=== PATIENT | female | born 1990 | race Caucasian/White ===

== ENCOUNTER 2023-05-19 10:39 | Outpatient (RCR) | payer BC, SELFPAY | END 2023-06-14 12:13 | disposition home or self-care (01) | LOC: RPT 10:39 | PROVIDERS: ATTENDING PHYSICIAN Internal Medicine | DX: R42 Dizziness and giddiness (principal); Z73.6 Limitation of activities due to disability | CPT/HCPCS: 97110; 97140 ==

== ENCOUNTER 2023-07-07 09:51 | Outpatient (RCR) | payer BC, SELFPAY | END 2023-07-07 23:59 | disposition home or self-care (01) | LOC: RPT 09:51 | PROVIDERS: ATTENDING PHYSICIAN Internal Medicine | DX: G90.A Postural orthostatic tachycardia syndrome [POTS] (principal); R42 Dizziness and giddiness | CPT/HCPCS: 97035; 97110; 97140 ==

== ENCOUNTER 2023-07-14 09:18 | Emergency (ER) | payer OTHER, BC, SELFPAY ==
[2023-07-14 09:20] VITALS: BP 124/81
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
[2023-07-14] MEDS: NSS 1000 IV (10:33)
[2023-07-14] MEDS: TORADOL 30 MG IV (10:33)
[2023-07-14 11:50] VITALS: BP 117/70
== END 2023-07-14 12:20 | disposition home or self-care (01) ==
LOC: EMR 09:18
PROVIDERS: EMERGENCY PHYSICIAN Emergency Medicine; FAMILY PHYSICIAN Internal Medicine
DX: S16.1XXA Strain of muscle, fascia and tendon at neck level, initial encounter (principal); M25.512 Pain in left shoulder; R51.9 Headache, unspecified; V44.5XXA Car driver injured in collision with heavy transport vehicle or bus in traffic accident, initial encounter; Y92.410 Unspecified street and highway as the place of occurrence of the external cause; G90.A Postural orthostatic tachycardia syndrome [POTS]; Q79.60 Ehlers-Danlos syndrome, unspecified; G62.9 Polyneuropathy, unspecified; F32.A Depression, unspecified; D64.9 Anemia, unspecified; E05.90 Thyrotoxicosis, unspecified without thyrotoxic crisis or storm; M79.671 Pain in right foot; M79.672 Pain in left foot; G89.29 Other chronic pain; Z88.8 Allergy status to other drugs, medicaments and biological substances; Z79.82 Long term (current) use of aspirin
CPT/HCPCS: 99284; 96374; 96361; 70450; 72125; 73030

== ENCOUNTER → 2023-07-28 14:16 | Outpatient (REF) | payer OTHER, BC, SELFPAY | LOC: RAD 14:16 | PROVIDERS: ATTENDING PHYSICIAN Family Medicine | DX: R68.84 Jaw pain (principal); M79.644 Pain in right finger(s) | CPT/HCPCS: 70110; 73130 ==

== ENCOUNTER 2023-08-11 08:52 | Outpatient (RCR) | payer OTHER, BC, SELFPAY | END 2023-08-11 23:59 | disposition home or self-care (01) | LOC: RPT 08:52 | PROVIDERS: ATTENDING PHYSICIAN Family Medicine | DX: S13.9XXD Sprain of joints and ligaments of unspecified parts of neck, subsequent encounter (principal); S06.0X0D Concussion without loss of consciousness, subsequent encounter; M25.512 Pain in left shoulder; R42 Dizziness and giddiness; Z73.6 Limitation of activities due to disability; M62.81 Muscle weakness (generalized); V44.9XXD Unspecified car occupant injured in collision with heavy transport vehicle or bus in traffic accident, subsequent encounter | CPT/HCPCS: 97010; 97110; 97112; 97140; 97163 ==

== ENCOUNTER 2023-08-13 09:02 | Outpatient (RCR) | payer BC, SELFPAY ==
[2023-07-17] MEDS: NSS 1000 IV (08:40)
[2023-07-17 08:45] VITALS: BP 117/67
[2023-07-20 11:12] VITALS: BP 113/59
[2023-07-20] MEDS: NSS 1000 IV (11:19)
[2023-07-24] MEDS: NSS 1000 IV (09:34)
[2023-07-24 09:38] VITALS: BP 102/63
[2023-07-27] MEDS: NSS 1000 IV (09:05)
[2023-07-27 09:20] VITALS: BP 113/51
[2023-07-31] MEDS: NSS 1000 IV (09:42)
[2023-07-31 09:45] VITALS: BP 106/70
[2023-08-03 08:40] VITALS: BP 120/75
[2023-08-03] MEDS: NSS 1000 IV (08:55)
[2023-08-07 08:30] VITALS: BP 117/63
[2023-08-07] MEDS: NSS 1000 IV (08:47)
[2023-08-11 10:49] VITALS: BP 103/66
[2023-08-11] MEDS: NSS 1000 IV (10:51)
[2023-08-13 09:30] VITALS: BP 112/64
[2023-08-13] MEDS: NSS 1000 IV (09:41)
== END 2023-08-13 23:59 | disposition home or self-care (01) ==
LOC: OID 09:02
PROVIDERS: ATTENDING PHYSICIAN Emergency Medicine; FAMILY PHYSICIAN Family Medicine; PRIMARYCARE PHYSICIAN Physical Medicine & Rehabilitation
DX: I49.8 Other specified cardiac arrhythmias (principal); R42 Dizziness and giddiness; E06.3 Autoimmune thyroiditis; E28.2 Polycystic ovarian syndrome; R55 Syncope and collapse; R00.0 Tachycardia, unspecified; G62.9 Polyneuropathy, unspecified
CPT/HCPCS: 96360

== ENCOUNTER 2023-08-25 10:02 | Outpatient (RCR) | payer OTHER, BC, SELFPAY | END 2023-08-25 23:59 | disposition home or self-care (01) | LOC: RPT 10:02 | PROVIDERS: ATTENDING PHYSICIAN Family Medicine | DX: S13.9XXD Sprain of joints and ligaments of unspecified parts of neck, subsequent encounter (principal); S06.0X0D Concussion without loss of consciousness, subsequent encounter; M25.512 Pain in left shoulder; R42 Dizziness and giddiness; Z73.6 Limitation of activities due to disability; M25.562 Pain in left knee; M25.561 Pain in right knee; M25.511 Pain in right shoulder; M25.572 Pain in left ankle and joints of left foot; M25.571 Pain in right ankle and joints of right foot; V44.5XXD Car driver injured in collision with heavy transport vehicle or bus in traffic accident, subsequent encounter | CPT/HCPCS: 97112; 97140 ==

== ENCOUNTER 2023-09-11 07:34 | Outpatient (RCR) | payer OTHER, BC, SELFPAY ==
[2023-08-17 09:30] VITALS: BP 106/68
[2023-08-17] MEDS: NSS 1000 IV (09:45)
[2023-08-21 09:05] VITALS: BP 109/65
[2023-08-21] MEDS: NSS 1000 IV (09:07)
[2023-08-24 09:20] VITALS: BP 97/66
[2023-08-24] MEDS: NSS 1000 IV (09:25)
[2023-08-27] MEDS: NSS 1000 IV (08:42)
[2023-08-27 08:46] VITALS: BP 114/67
[2023-08-31 08:30] VITALS: BP 116/60
[2023-08-31] MEDS: NSS 1000 IV (08:50)
[2023-09-04 09:31] VITALS: BP 114/68
[2023-09-04] MEDS: NSS 1000 IV (09:36)
[2023-09-07 09:14] VITALS: BP 108/71
[2023-09-07] MEDS: NSS 1000 IV (09:31)
[2023-09-11 07:45] VITALS: BP 112/68
[2023-09-11] MEDS: NSS 1000 IV (08:00)
== END 2023-09-13 23:59 | disposition home or self-care (01) ==
LOC: OID 07:34
PROVIDERS: Specialist; ATTENDING PHYSICIAN Emergency Medicine; FAMILY PHYSICIAN Family Medicine; PRIMARYCARE PHYSICIAN Physical Medicine & Rehabilitation
DX: I49.8 Other specified cardiac arrhythmias (principal); R42 Dizziness and giddiness; E06.3 Autoimmune thyroiditis; E28.2 Polycystic ovarian syndrome; R55 Syncope and collapse; R00.0 Tachycardia, unspecified; G62.9 Polyneuropathy, unspecified
CPT/HCPCS: 36415; 96360; 96361; 86041

== ENCOUNTER 2023-09-29 11:04 | Outpatient (RCR) | payer BC, SELFPAY | END 2023-10-13 15:58 | disposition home or self-care (01) | LOC: RPT 11:04 | PROVIDERS: ATTENDING PHYSICIAN Family Medicine | DX: S13.9XXD Sprain of joints and ligaments of unspecified parts of neck, subsequent encounter (principal); S06.0X0D Concussion without loss of consciousness, subsequent encounter; M25.512 Pain in left shoulder; R42 Dizziness and giddiness; Z73.6 Limitation of activities due to disability | CPT/HCPCS: 97110; 97140 ==

== ENCOUNTER 2023-10-12 09:13 | Outpatient (RCR) | payer BC, SELFPAY ==
[2023-09-15 13:05] VITALS: BP 104/56
[2023-09-15] MEDS: NSS 1000 IV (13:15)
[2023-09-15 14:25] VITALS: BP 107/66
[2023-09-18 11:25] VITALS: BP 106/70
[2023-09-18] MEDS: NSS 1000 IV (11:36)
[2023-09-21] MEDS: NSS 1000 IV (10:40)
[2023-09-21 10:51] VITALS: BP 99/62
[2023-09-25] MEDS: NSS 1000 IV (08:48)
[2023-09-25 08:52] VITALS: BP 120/63
[2023-09-28] MEDS: NSS 1000 IV (08:51)
[2023-09-28 08:56] VITALS: BP 108/65
[2023-10-02] MEDS: NSS 1000 IV (08:15)
[2023-10-02 08:21] VITALS: BP 110/68
[2023-10-05 08:30] VITALS: BP 109/61
[2023-10-05] MEDS: NSS 1000 IV (08:50)
[2023-10-09 07:56] VITALS: BP 110/70
[2023-10-09] MEDS: NSS 1000 IV (08:08)
[2023-10-12 09:15] VITALS: BP 108/62
[2023-10-12] MEDS: NSS 1000 IV (09:35)
== END 2023-10-13 09:35 | disposition home or self-care (01) ==
LOC: OID 09:13
PROVIDERS: ATTENDING PHYSICIAN Emergency Medicine; FAMILY PHYSICIAN Family Medicine; PRIMARYCARE PHYSICIAN Physical Medicine & Rehabilitation
DX: I49.8 Other specified cardiac arrhythmias (principal); R42 Dizziness and giddiness; E06.3 Autoimmune thyroiditis; E28.2 Polycystic ovarian syndrome; R55 Syncope and collapse; R00.0 Tachycardia, unspecified; G62.9 Polyneuropathy, unspecified
CPT/HCPCS: 96360

== ENCOUNTER → 2023-10-29 09:38 | Outpatient (REF) | payer BC, SELFPAY | LOC: RAD 09:38 | PROVIDERS: ATTENDING PHYSICIAN Family Medicine | DX: R07.81 Pleurodynia (principal) | CPT/HCPCS: 71100 ==

== ENCOUNTER 2023-11-13 08:28 | Outpatient (RCR) | payer BC, SELFPAY ==
[2023-10-15 09:42] VITALS: BP 92/62
[2023-10-15] MEDS: NSS 1000 IV (09:44)
[2023-10-19 07:55] VITALS: BP 111/90
[2023-10-19] MEDS: NSS 1000 IV (07:55)
[2023-10-23 09:00] VITALS: BP 114/70
[2023-10-23] MEDS: NSS 1000 IV (09:00)
[2023-10-26] MEDS: NSS 1000 IV (08:51)
[2023-10-26 08:55] VITALS: BP 106/73
[2023-10-30 09:23] VITALS: BP 108/69
[2023-10-30] MEDS: NSS 1000 IV (09:31)
[2023-11-02 09:20] VITALS: BP 121/62
[2023-11-02] MEDS: NSS 1000 IV (09:32)
[2023-11-06 08:20] VITALS: BP 100/68
[2023-11-06] MEDS: NSS 1000 IV (08:43)
[2023-11-06 09:20] LABS: % Basophils 0.8 % (0-2); % Eosinophils 0.6 % (0-6); % Immature Granulocytes 0.3 % (0-0.5); % Lymphocytes 31.6 % (20.5-51.1); % Monocytes 6.5 % (1.7-9.3); % Neutrophils 60.2 % (42.2-75.2); Absolute Basophils 0.1 10^3/uL (0-0.2); Absolute Lymphocytes 2.1 10^3/uL (1.2-3.4); Absolute Monocytes 0.4 10^3/uL (0.1-0.6); Hematocrit 37.4 % (37.0-47.0); Hemoglobin 12.7 g/dL (12.0-16.0); Mean Corpuscular Hgb 29.7 pg (27.0-31.0); Mean Corpuscular Volume 87.4 fL (81.0-99.0); Mean Platelet Volume 10.2 fL (7.4-10.4); Nucleated Red Blood Cells % 0 %; Platelet Count 369 10^3/uL (130-400); Red Blood Cell Count 4.28 10^6/uL (4.20-5.40); Red Cell Dist. Width 12.1 % (11.5-14.5); White Blood Cell Count 6.7 10^3/uL (4.8-10.8)
[2023-11-06 09:35] LABS: ALT (SGPT) 16 U/L (0-35); AST (SGOT) 20 U/L (14-36); Albumin 4.6 g/dl (3.5-5.0); Alkaline Phosphatase 46 U/L (38-126); Blood Urea Nitrogen 11 mg/dl (7-17); C-Reactive Protein < 5.00 mg/L (0.0-10.00); Calcium 10.2 mg/dl (8.4-10.2); Carbon Dioxide 25 mmol/L (22-30); Chloride 105 mmol/L (98-107); Glucose 91 mg/dl (70-99); HDL Cholesterol 58 mg/dl; LDL Cholesterol, Calculated 121 mg/dl; Potassium 4.6 mmol/L (3.5-5.1); Sodium 138 mmol/L (135-145); Total Bilirubin 0.7 mg/dl (0.2-1.3); Total Cholesterol 194 mg/dl (50-199); Triglyceride 78 mg/dl (10-149); Very Low Density Lipoprotein 15 mg/dl (0-30); eGFR > 60.00
[2023-11-06 10:06] LABS: TSH Reflex To Free T4 1.67 uIU/ml (0.47-4.68)
[2023-11-06 10:57] LABS: Urine Albumin Negative (Neg - Trace); Urine Bilirubin Negative (Negative); Urine Character Clear (Clear); Urine Color Straw; Urine Glucose Negative (Negative); Urine Ketone Negative (Negative); Urine Leukocyte Negative (Negative); Urine Nitrite Negative (Negative); Urine Occult Blood Negative (Negative); Urine Specific Gravity 1.005 (<1.030); Urine Urobilinogen Negative (Neg - 1+)
[2023-11-07 23:14] LABS: ANA, IgG Reflex to HEp-2 None Detected (None Detected)
[2023-11-09 05:05] LABS: Complement C3 106 mg/dl (88-165)
[2023-11-10 09:10] VITALS: BP 114/75
[2023-11-10] MEDS: NSS 1000 IV (09:20)
[2023-11-13 08:45] VITALS: BP 115/70
[2023-11-13] MEDS: NSS 1000 IV (08:55)
--- NOTE | 2023-11-16 10:55 | OIDSOC ---
Working with pt on home care vs palliative, and which service she wants to pursue. Provided her contact info, has tentatively gotten her info on both [facility] & palliative, as pt is concerned about getting providers that have experience
with POTS/EDS. Provided continued support, and encouraged her to reach out with more questions, but also explained a consult with either service will best answer specific questions she has about their programs. Tequila
== END 2023-11-13 14:29 | disposition home or self-care (01) ==
LOC: OID 08:28
PROVIDERS: ATTENDING PHYSICIAN Emergency Medicine; FAMILY PHYSICIAN Family Medicine; OTHER PHYSICIAN Internal Medicine; OTHER PHYSICIAN Internal Medicine Rheumatology; PRIMARYCARE PHYSICIAN Physical Medicine & Rehabilitation
DX: I49.8 Other specified cardiac arrhythmias (principal); R42 Dizziness and giddiness; E06.3 Autoimmune thyroiditis; E28.2 Polycystic ovarian syndrome; R55 Syncope and collapse; R00.0 Tachycardia, unspecified; G62.9 Polyneuropathy, unspecified
CPT/HCPCS: 36415; 80053; 80061; 81003; 84443; 85025; 86038; 86140; 86160; 96360

== ENCOUNTER 2023-12-11 08:25 | Outpatient (RCR) | payer BC, SELFPAY ==
[2023-11-16 09:23] VITALS: BP 103/62
[2023-11-16] MEDS: NSS 1000 IV (09:35)
[2023-11-20 10:21] VITALS: BP 118/60
[2023-11-20] MEDS: NSS 1000 IV (10:22)
[2023-11-24] MEDS: NSS 1000 IV (09:43)
[2023-11-24 09:46] VITALS: BP 103/56
[2023-11-27] MEDS: NSS 1000 IV (09:11)
[2023-11-27 09:13] VITALS: BP 90/70
[2023-11-30] MEDS: NSS 1000 IV (08:10)
[2023-11-30 08:13] VITALS: BP 106/66
[2023-12-04 07:55] VITALS: BP 110/72
[2023-12-04] MEDS: NSS 1000 IV (08:00)
[2023-12-07 09:20] VITALS: BP 103/58
[2023-12-11] MEDS: NSS 1000 IV (08:58)
[2023-12-11 09:04] VITALS: BP 102/61
== END 2023-12-11 14:36 | disposition home or self-care (01) ==
LOC: OID 08:25
PROVIDERS: ATTENDING PHYSICIAN Emergency Medicine; FAMILY PHYSICIAN Family Medicine; OTHER PHYSICIAN Internal Medicine; OTHER PHYSICIAN Internal Medicine Rheumatology; PRIMARYCARE PHYSICIAN Physical Medicine & Rehabilitation
DX: I49.8 Other specified cardiac arrhythmias (principal); R42 Dizziness and giddiness; E06.3 Autoimmune thyroiditis; E28.2 Polycystic ovarian syndrome; R55 Syncope and collapse; R00.0 Tachycardia, unspecified; G62.9 Polyneuropathy, unspecified
CPT/HCPCS: 96360; 96361

== ENCOUNTER 2024-01-12 10:10 | Outpatient (RCR) | payer BC, SELFPAY | END 2024-01-12 23:59 | disposition home or self-care (01) | LOC: ROT 10:10 | PROVIDERS: ATTENDING PHYSICIAN Orthopaedic Surgery Hand Surgery; FAMILY PHYSICIAN Family Medicine | DX: M79.641 Pain in right hand (principal); M79.642 Pain in left hand; Z73.6 Limitation of activities due to disability | CPT/HCPCS: 97167; 97760 ==

== ENCOUNTER 2024-01-13 13:26 | Outpatient (RCR) | payer BC, SELFPAY ==
[2023-12-14 08:50] VITALS: BP 115/71
[2023-12-14] MEDS: NSS 1000 IV (08:50)
[2023-12-18 08:40] VITALS: BP 105/82
[2023-12-18] MEDS: NSS 1000 IV (09:05)
[2023-12-21 08:45] VITALS: BP 105/62
[2023-12-21] MEDS: NSS 1000 IV (08:56)
[2023-12-25] MEDS: NSS 1000 IV (09:46)
[2023-12-25 09:53] VITALS: BP 103/69
[2023-12-28 08:33] VITALS: BP 104/60
[2023-12-28] MEDS: NSS 1000 IV (08:40)
[2024-01-01 08:30] VITALS: BP 115/71
[2024-01-01] MEDS: NSS 1000 IV (08:49)
[2024-01-04 08:58] VITALS: BP 99/65
[2024-01-04] MEDS: NSS 1000 IV (09:06)
[2024-01-11 08:43] VITALS: BP 111/70
[2024-01-11] MEDS: NSS 1000 IV (08:55)
[2024-01-13 13:59] VITALS: BP 113/72
[2024-01-13] MEDS: NSS 1000 IV (14:00)
== END 2024-01-13 23:59 | disposition home or self-care (01) ==
LOC: OID 13:26
PROVIDERS: ATTENDING PHYSICIAN Emergency Medicine; FAMILY PHYSICIAN Family Medicine; OTHER PHYSICIAN Internal Medicine; OTHER PHYSICIAN Internal Medicine Rheumatology; PRIMARYCARE PHYSICIAN Physical Medicine & Rehabilitation
DX: I49.8 Other specified cardiac arrhythmias (principal); R42 Dizziness and giddiness; E06.3 Autoimmune thyroiditis; E28.2 Polycystic ovarian syndrome; R55 Syncope and collapse; R00.0 Tachycardia, unspecified; G62.9 Polyneuropathy, unspecified
CPT/HCPCS: 96360

== ENCOUNTER 2024-02-04 08:49 | Outpatient (RCR) | payer BC, SELFPAY | END 2024-02-04 23:59 | disposition home or self-care (01) | LOC: ROT 08:49 | PROVIDERS: ATTENDING PHYSICIAN Orthopaedic Surgery Hand Surgery; FAMILY PHYSICIAN Family Medicine | DX: M79.641 Pain in right hand (principal); M79.642 Pain in left hand; Z73.6 Limitation of activities due to disability | CPT/HCPCS: 97110; 97535; 97763 ==

== ENCOUNTER 2024-02-12 08:40 | Outpatient (RCR) | payer BC, SELFPAY ==
[2024-01-18 08:40] VITALS: BP 90/65
[2024-01-18] MEDS: NSS 1000 IV (09:02)
[2024-01-18 10:10] VITALS: BP 113/70
[2024-01-22 09:00] VITALS: BP 114/75
[2024-01-22] MEDS: NSS 1000 IV (09:00)
[2024-01-29] MEDS: NSS 1000 IV (08:57)
[2024-01-29 09:12] VITALS: BP 108/70
[2024-02-05 09:10] VITALS: BP 110/75
[2024-02-08 09:08] VITALS: BP 117/74
[2024-02-08] MEDS: NSS 1000 IV (09:29)
[2024-02-08 11:28] VITALS: BP 111/72
[2024-02-12] MEDS: NSS 1000 IV (09:03)
[2024-02-12 09:04] VITALS: BP 115/71
== END 2024-02-13 23:59 | disposition home or self-care (01) ==
LOC: OID 08:40
PROVIDERS: ATTENDING PHYSICIAN Emergency Medicine; FAMILY PHYSICIAN Family Medicine; OTHER PHYSICIAN Internal Medicine; OTHER PHYSICIAN Internal Medicine Rheumatology; PRIMARYCARE PHYSICIAN Physical Medicine & Rehabilitation
DX: G90.1 Familial dysautonomia [Riley-Day] (principal); I49.8 Other specified cardiac arrhythmias (principal); R42 Dizziness and giddiness; E06.3 Autoimmune thyroiditis; E28.2 Polycystic ovarian syndrome; R55 Syncope and collapse; R00.0 Tachycardia, unspecified; G62.9 Polyneuropathy, unspecified
CPT/HCPCS: 96360; 96361

== ENCOUNTER 2024-03-07 07:15 | Outpatient (RCR) | payer BC, SELFPAY | END 2024-03-07 23:59 | disposition home or self-care (01) | LOC: ROT 07:15 | PROVIDERS: ATTENDING PHYSICIAN Orthopaedic Surgery Hand Surgery; FAMILY PHYSICIAN Family Medicine | DX: M79.641 Pain in right hand (principal); M79.642 Pain in left hand; Z73.6 Limitation of activities due to disability; M62.81 Muscle weakness (generalized); R53.83 Other fatigue | CPT/HCPCS: 97010; 97110; 97535 ==

== ENCOUNTER 2024-03-10 13:32 | Outpatient (RCR) | payer MEDICARE, BC, SELFPAY ==
[2024-02-16 08:00] VITALS: BP 108/64
[2024-02-16] MEDS: NSS 1000 IV (08:11)
[2024-02-22] MEDS: NSS 1000 IV (10:20)
[2024-02-22 10:22] VITALS: BP 116/57
[2024-02-26] MEDS: NSS 1000 IV (09:00)
[2024-02-26 09:05] VITALS: BP 114/70
[2024-02-29 08:00] VITALS: BP 95/60
[2024-02-29] MEDS: NSS 1000 IV (08:19)
[2024-03-04] MEDS: NSS 1000 IV (08:49)
[2024-03-04 08:59] VITALS: BP 114/67
[2024-03-07] MEDS: NSS 1000 IV (10:10)
[2024-03-07 10:27] VITALS: BP 116/77
[2024-03-10 13:55] VITALS: BP 102/46
[2024-03-10] MEDS: NSS 1000 IV (14:00)
[2024-03-10 15:20] VITALS: BP 107/68
== END 2024-03-14 23:59 | disposition home or self-care (01) ==
LOC: OID 13:32
PROVIDERS: ATTENDING PHYSICIAN Emergency Medicine; FAMILY PHYSICIAN Family Medicine; OTHER PHYSICIAN Internal Medicine; OTHER PHYSICIAN Internal Medicine Rheumatology; PRIMARYCARE PHYSICIAN Physical Medicine & Rehabilitation
DX: I49.8 Other specified cardiac arrhythmias (principal); R42 Dizziness and giddiness; E06.3 Autoimmune thyroiditis; E28.2 Polycystic ovarian syndrome; R55 Syncope and collapse; R00.0 Tachycardia, unspecified; G62.9 Polyneuropathy, unspecified
CPT/HCPCS: 96360

== ENCOUNTER → 2024-04-01 10:38 | Outpatient (REF) | payer BC, SELFPAY | LOC: RAD 10:38 | PROVIDERS: ATTENDING PHYSICIAN Family Medicine | DX: R05.1 Acute cough (principal) | CPT/HCPCS: 71046 ==

== ENCOUNTER 2024-04-13 08:24 | Outpatient (RCR) | payer MEDICARE, BC, SELFPAY ==
[2024-03-16] MEDS: NSS 1000 IV (10:42)
[2024-03-16 10:46] VITALS: BP 111/73
[2024-03-21] MEDS: NSS 1000 IV (09:39)
[2024-03-21 09:40] VITALS: BP 98/62
[2024-03-28 08:45] VITALS: BP 102/67
[2024-03-28] MEDS: NSS 1000 IV (08:56)
[2024-04-01 08:46] VITALS: BP 117/75
[2024-04-01] MEDS: NSS 1000 IV (09:00)
[2024-04-04 08:40] VITALS: BP 119/70
[2024-04-04] MEDS: NSS 1000 IV (08:54)
[2024-04-08 08:30] VITALS: BP 109/74
[2024-04-08] MEDS: NSS 1000 IV (09:19)
[2024-04-08 10:00] LABS: ALT (SGPT) 36 U/L (0-35); AST (SGOT) 26 U/L (14-36); Albumin 4.4 g/dl (3.5-5.0); Alkaline Phosphatase 54 U/L (38-126); Blood Urea Nitrogen 9 mg/dl (7-17); Calcium 9.8 mg/dl (8.4-10.2); Carbon Dioxide 26 mmol/L (22-30); Chloride 102 mmol/L (98-107); Glucose 89 mg/dl (70-99); Potassium 4.5 mmol/L (3.5-5.1); Sodium 138 mmol/L (135-145); Total Bilirubin 0.4 mg/dl (0.2-1.3); Total Protein 6.7 g/dl (6.3-8.2); eGFR > 60.00
[2024-04-08 10:19] LABS: FSH 2.9 mIU/ml; Free T4 1.03 ng/dl (0.78-2.19); Luteinizing Hormone 7.16 mIU/ml
[2024-04-08 10:31] LABS: Erythrocyte Sed Rate 14 mm/hour (0-20)
[2024-04-08 10:32] LABS: TSH 1.28 uIU/ml (0.47-4.68)
[2024-04-08 10:34] LABS: Testosterone, Total 16.4 ng/dl
[2024-04-08 13:58] LABS: Glycohemoglobin (HgbA1c) 4.9 % (4.0-5.6)
[2024-04-10 02:19] LABS: DHEA Sulfate 98 ug/dL (99-340)
[2024-04-10 03:04] LABS: ANA, IgG Reflex to HEp-2 None Detected (None Detected)
[2024-04-13] MEDS: NSS 1000 IV (08:49)
[2024-04-13 08:54] VITALS: BP 139/66
== END 2024-04-14 08:29 | disposition home or self-care (01) ==
LOC: OID 08:24
PROVIDERS: Internal Medicine Endocrinology, Diabetes & Metabolism; ATTENDING PHYSICIAN Emergency Medicine; FAMILY PHYSICIAN Family Medicine; OTHER PHYSICIAN Internal Medicine; OTHER PHYSICIAN Internal Medicine Rheumatology; PRIMARYCARE PHYSICIAN Physical Medicine & Rehabilitation
DX: I49.8 Other specified cardiac arrhythmias (principal); R42 Dizziness and giddiness; E06.3 Autoimmune thyroiditis; E28.2 Polycystic ovarian syndrome; R55 Syncope and collapse; R00.0 Tachycardia, unspecified; G62.9 Polyneuropathy, unspecified
CPT/HCPCS: 36415; 80053; 82627; 83001; 83002; 83036; 84403; 84439; 84443; 85652; 86038; 86140; 96360

== ENCOUNTER 2024-05-13 08:17 | Outpatient (RCR) | payer BC, SELFPAY ==
[2024-04-15] MEDS: NSS 1000 IV (08:30)
[2024-04-15 08:59] VITALS: BP 106/67
[2024-04-18 08:30] VITALS: BP 114/63
[2024-04-18] MEDS: NSS 1000 IV (08:37)
[2024-04-22 08:49] VITALS: BP 112/69
[2024-04-22] MEDS: NSS 1000 IV (08:55)
[2024-04-25 08:30] VITALS: BP 108/68
[2024-04-25] MEDS: NSS 1000 IV (08:30)
[2024-04-28 08:30] VITALS: BP 107/58
[2024-04-28] MEDS: NSS 1000 IV (08:54)
[2024-05-02 08:35] VITALS: BP 103/60
[2024-05-02] MEDS: NSS 1000 IV (08:43)
[2024-05-06 08:45] VITALS: BP 118/63
[2024-05-06] MEDS: NSS 1000 IV (08:52)
[2024-05-09 08:40] VITALS: BP 119/62
[2024-05-09] MEDS: NSS 1000 IV (08:48)
[2024-05-13] MEDS: NSS 1000 IV (08:58)
[2024-05-13 09:10] VITALS: BP 103/72
== END 2024-05-13 13:08 | disposition home or self-care (01) ==
LOC: OID 08:17
PROVIDERS: ATTENDING PHYSICIAN Internal Medicine; OTHER PHYSICIAN Internal Medicine; OTHER PHYSICIAN Internal Medicine Rheumatology; PRIMARYCARE PHYSICIAN Family Medicine
DX: I49.8 Other specified cardiac arrhythmias (principal); R42 Dizziness and giddiness; E06.3 Autoimmune thyroiditis; E28.2 Polycystic ovarian syndrome; R55 Syncope and collapse; R00.0 Tachycardia, unspecified; G62.9 Polyneuropathy, unspecified
CPT/HCPCS: 96360

== ENCOUNTER 2024-06-13 08:37 | Outpatient (RCR) | payer BC, SELFPAY ==
[2024-05-16 08:45] VITALS: BP 115/74
[2024-05-16] MEDS: NSS 1000 IV (08:50)
[2024-05-20] MEDS: NSS 1000 IV (08:56)
[2024-05-20 08:58] VITALS: BP 128/67
[2024-05-23 08:55] VITALS: BP 116/67
[2024-05-23] MEDS: NSS 1000 IV (08:58)
[2024-05-23 09:22] LABS: % Eosinophils 0.8 % (0-6); % Immature Granulocytes 0.3 % (0-0.5); % Monocytes 6.8 % (1.7-9.3); % Neutrophils 61.1 % (42.2-75.2); Absolute Basophils 0.1 10^3/uL (0-0.2); Absolute Eosinophils 0.1 10^3/uL (0-0.7); Absolute Lymphocytes 1.9 10^3/uL (1.2-3.4); Absolute Monocytes 0.4 10^3/uL (0.1-0.6); Absolute Neutrophils 3.8 10^3/uL (1.4-6.5); Hematocrit 36.3 % (37.0-47.0); Hemoglobin 12.5 g/dL (12.0-16.0); Mean Corp Hgb Conc. 34.4 g/dL (33.0-37.0); Mean Corpuscular Hgb 29.4 pg (27.0-31.0); Mean Corpuscular Volume 85.4 fL (81.0-99.0); Mean Platelet Volume 9.8 fL (7.4-10.4); Nucleated Red Blood Cells % 0 %; Platelet Count 323 10^3/uL (130-400); Red Blood Cell Count 4.25 10^6/uL (4.20-5.40); Red Cell Dist. Width 11.8 % (11.5-14.5); White Blood Cell Count 6.2 10^3/uL (4.8-10.8)
[2024-05-23 09:34] LABS: ALT (SGPT) 23 U/L (0-35); AST (SGOT) 23 U/L (14-36); Albumin 4.5 g/dl (3.5-5.0); Alkaline Phosphatase 50 U/L (38-126); Blood Urea Nitrogen 12 mg/dl (7-17); Calcium 9.5 mg/dl (8.4-10.2); Carbon Dioxide 27 mmol/L (22-30); Chloride 104 mmol/L (98-107); Glucose 90 mg/dl (70-99); Potassium 4.4 mmol/L (3.5-5.1); Sodium 138 mmol/L (135-145); Total Bilirubin 0.7 mg/dl (0.2-1.3); Total Protein 6.9 g/dl (6.3-8.2); eGFR > 60.00
[2024-05-23 09:37] LABS: C-Reactive Protein < 5.00 mg/L (0.0-10.00)
[2024-05-23 09:54] LABS: Vitamin D, 25-OH*** 49.5 ng/mL (30-80)
[2024-05-23 09:57] LABS: Complement C3 120 mg/dl (88-165)
[2024-05-23 10:18] LABS: Erythrocyte Sed Rate 13 mm/hour (0-20)
[2024-05-23 14:28] LABS: Rheumatoid Agglutinin Less Than 10 IU (<10 IU)
[2024-05-25 09:02] LABS: Cardiolipin IgA Antibody <10 APL (<=11); Cardiolipin IgM Antibody <10 MPL (<=12); Cardiolipin Igg Antibody <10 GPL (<=14)
[2024-05-25 17:14] LABS: Anti-Xa Qualitative Interp Not Performed (Not Present); Anticoagulant Med Neutralizati Not Performed (Not Performed); Hexagonal Phospholipid Confirm Not Performed s (<=7.9); Neutralized PTT-LA Ratio Not Performed (<=1.20); Neutralized dRVTT Screen Ratio Not Performed (<=1.20); PTT-LA Ratio 0.93 (<=1.20); Prothrombin Time 13.7 s (12.0-15.5); Thrombin Time Not Performed s (<=19.5); dRVTT 1.1 Mix Ratio Not Performed (<=1.20); dRVTT Confirmation Ratio Not Performed (<=1.20); dRVTT Screen Ratio 0.83 (<=1.20)
[2024-05-25 20:58] LABS: ds-DNA Ab, IgG Reflex To Titer 11 IU (0-24)
[2024-05-26 01:24] LABS: Smith/RNP (ENA), IgG 2 Units (0-19)
[2024-05-26 08:35] LABS: SSA 52 (Ro)(ENA) Ab, IgG 1 AU/mL (0-40); SSA 60 (Ro)(ENA) Ab, IgG 0 AU/mL (0-40); SSB (La)(ENA) Ab, IgG 0 AU/mL (0-40); Smith (ENA) Antibody, IgG 1 AU/mL (0-40)
[2024-05-27] MEDS: NSS 1000 IV (09:01)
[2024-05-27 09:04] VITALS: BP 122/73
[2024-05-27 12:25] LABS: Urine Squamous Cell 26-30 /LPF (Few); Urine Urothelial Cell 0-2 /LPF (FEW)
[2024-05-27 12:26] LABS: Urine Bacteria Few (Negative); Urine Red Blood Cell 0-2 /HPF (0-2); Urine White Cell 0-2 /HPF (0-5)
[2024-05-30] MEDS: NSS 1000 IV (09:15)
[2024-05-30 09:21] VITALS: BP 114/49
[2024-06-03] MEDS: NSS 1000 IV (08:55)
[2024-06-03 08:59] VITALS: BP 111/61
[2024-06-06 08:40] VITALS: BP 112/68
[2024-06-06] MEDS: NSS 1000 IV (09:07)
[2024-06-10] MEDS: NSS 1000 IV (08:50)
[2024-06-10 08:51] VITALS: BP 104/57
[2024-06-13 08:50] VITALS: BP 123/61
[2024-06-13] MEDS: NSS 1000 IV (09:00)
== END 2024-06-14 13:16 | disposition home or self-care (01) ==
LOC: OID 08:37
PROVIDERS: ATTENDING PHYSICIAN Internal Medicine; OTHER PHYSICIAN Internal Medicine; OTHER PHYSICIAN Internal Medicine Rheumatology; PRIMARYCARE PHYSICIAN Family Medicine
DX: I49.8 Other specified cardiac arrhythmias (principal); R42 Dizziness and giddiness; E06.3 Autoimmune thyroiditis; E28.2 Polycystic ovarian syndrome; R55 Syncope and collapse; R00.0 Tachycardia, unspecified; G62.9 Polyneuropathy, unspecified
CPT/HCPCS: 36415; 80053; 81015; 82248; 82306; 85025; 85610; 85613; 85652; 85730; 86140; 86147; 86160; 86225; 86235; 86430; 96360; 96361

== ENCOUNTER 2024-07-15 08:27 | Outpatient (RCR) | payer BC, SELFPAY ==
[2024-06-17] MEDS: NSS 1000 IV (09:03)
[2024-06-17 09:16] VITALS: BP 104/62
[2024-06-22 08:43] VITALS: BP 116/76
[2024-06-22] MEDS: NSS 1000 IV (08:55)
[2024-06-24 08:50] VITALS: BP 109/58
[2024-06-24] MEDS: NSS 1000 IV (09:00)
[2024-06-24 09:32] LABS: Creatine Phosphokinase 29 U/L (30-135)
[2024-06-24 09:36] LABS: C-Reactive Protein < 5.00 mg/L (0.0-10.00)
[2024-06-24 09:46] LABS: Erythrocyte Sed Rate 11 mm/hour (0-20)
[2024-06-27 08:37] VITALS: BP 89/62
[2024-06-27] MEDS: NSS 1000 IV (08:48)
[2024-07-01 09:04] VITALS: BP 113/66
[2024-07-01] MEDS: NSS 1000 IV (09:09)
[2024-07-08 08:35] VITALS: BP 118/74
[2024-07-08] MEDS: NSS 1000 IV (08:41)
[2024-07-11] MEDS: NSS 1000 IV (08:30)
[2024-07-11 08:46] VITALS: BP 115/72
[2024-07-15 08:51] VITALS: BP 115/73
[2024-07-15] MEDS: NSS 1000 IV (08:51)
== END 2024-07-15 13:55 | disposition home or self-care (01) ==
LOC: OID 08:27
PROVIDERS: ATTENDING PHYSICIAN Internal Medicine; OTHER PHYSICIAN Internal Medicine; OTHER PHYSICIAN Internal Medicine Rheumatology; PRIMARYCARE PHYSICIAN Family Medicine
DX: I49.8 Other specified cardiac arrhythmias (principal); R42 Dizziness and giddiness; E06.3 Autoimmune thyroiditis; E28.2 Polycystic ovarian syndrome; R55 Syncope and collapse; R00.0 Tachycardia, unspecified; G62.9 Polyneuropathy, unspecified
CPT/HCPCS: 36415; 82550; 85379; 85652; 86140; 96360; 96361

== ENCOUNTER 2024-08-12 08:20 | Outpatient (RCR) | payer BC, SELFPAY ==
[2024-07-18 07:50] VITALS: BP 111/71
[2024-07-18] MEDS: NSS 1000 IV (08:08)
[2024-07-22 08:30] VITALS: BP 118/75
[2024-07-22] MEDS: NSS 1000 IV (08:43)
[2024-07-25 08:35] VITALS: BP 127/69
[2024-07-25] MEDS: NSS 1000 IV (08:46)
[2024-07-29 08:45] VITALS: BP 107/52
[2024-07-29] MEDS: NSS 1000 IV (08:55)
[2024-08-01 08:50] VITALS: BP 114/65
[2024-08-01] MEDS: NSS 1000 IV (09:01)
[2024-08-05] MEDS: NSS 1000 IV (08:40)
[2024-08-05 09:04] VITALS: BP 110/75
[2024-08-08] VITALS (10 sets, daily range): BP systolic 101–120; BP diastolic 49–74
[2024-08-08] MEDS: GAMMAGARD 300 IV (08:05)
[2024-08-08] MEDS: NSS 1000 IV (08:05)
[2024-08-12] MEDS: NSS 1000 IV (08:50)
[2024-08-12 09:16] VITALS: BP 100/69
== END 2024-08-12 23:59 | disposition home or self-care (01) ==
LOC: OID 08:20
PROVIDERS: ATTENDING PHYSICIAN Internal Medicine; OTHER PHYSICIAN Internal Medicine; OTHER PHYSICIAN Internal Medicine Rheumatology; PRIMARYCARE PHYSICIAN Family Medicine
DX: I49.8 Other specified cardiac arrhythmias (principal); R42 Dizziness and giddiness; E06.3 Autoimmune thyroiditis; E28.2 Polycystic ovarian syndrome; R55 Syncope and collapse; R00.0 Tachycardia, unspecified; G62.9 Polyneuropathy, unspecified
CPT/HCPCS: 96360; 96361; 96365; 96366; J1569

== ENCOUNTER 2024-09-12 08:21 | Outpatient (RCR) | payer BC, SELFPAY ==
[2024-08-15 08:55] VITALS: BP 119/75
[2024-08-15] MEDS: NSS 1000 IV (08:55)
[2024-08-19 08:45] VITALS: BP 130/67
[2024-08-19] MEDS: NSS 1000 IV (08:55)
[2024-08-22] MEDS: NSS 1000 IV (08:58)
[2024-08-22 09:04] VITALS: BP 116/56
[2024-08-26] MEDS: NSS 1000 IV (08:57)
[2024-08-26 09:02] VITALS: BP 124/68
[2024-08-26 09:02] LABS: % Basophils 0.6 % (0-2); % Eosinophils 0.9 % (0-6); % Immature Granulocytes 0.1 % (0-0.5); % Lymphocytes 26.5 % (20.5-51.1); % Monocytes 7.4 % (1.7-9.3); % Neutrophils 64.5 % (42.2-75.2); Absolute Basophils 0.1 10^3/uL (0-0.2); Absolute Eosinophils 0.1 10^3/uL (0-0.7); Absolute Lymphocytes 2.2 10^3/uL (1.2-3.4); Absolute Monocytes 0.6 10^3/uL (0.1-0.6); Absolute Neutrophils 5.4 10^3/uL (1.4-6.5); Hematocrit 37.4 % (37.0-47.0); Mean Corp Hgb Conc. 34.8 g/dL (33.0-37.0); Mean Corpuscular Hgb 29.4 pg (27.0-31.0); Mean Corpuscular Volume 84.6 fL (81.0-99.0); Mean Platelet Volume 9.7 fL (7.4-10.4); Platelet Count 411 10^3/uL (130-400); Red Blood Cell Count 4.42 10^6/uL (4.20-5.40); Red Cell Dist. Width 11.7 % (11.5-14.5); White Blood Cell Count 8.4 10^3/uL (4.8-10.8)
[2024-08-26 09:51] LABS: ALT (SGPT) 57 U/L (0-35); AST (SGOT) 35 U/L (14-36); Albumin 4.5 g/dl (3.5-5.0); Alkaline Phosphatase 56 U/L (38-126); Blood Urea Nitrogen 13 mg/dl (7-17); Calcium 9.8 mg/dl (8.4-10.2); Carbon Dioxide 26 mmol/L (22-30); Chloride 103 mmol/L (98-107); Glucose 92 mg/dl (70-99); HDL Cholesterol 65 mg/dl; LDL Cholesterol, Calculated 132 mg/dl; Potassium 4.7 mmol/L (3.5-5.1); Sodium 137 mmol/L (135-145); Total Bilirubin 0.5 mg/dl (0.2-1.3); Total Cholesterol 217 mg/dl (50-199); Total Protein 7.6 g/dl (6.3-8.2); Triglyceride 104 mg/dl (10-149); Very Low Density Lipoprotein 20 mg/dl (0-30); eGFR > 60.00
[2024-08-26 10:12] LABS: FSH 4.1 mIU/ml; Free T4 0.92 ng/dl (0.78-2.19); Luteinizing Hormone 4.69 mIU/ml
[2024-08-26 10:15] LABS: Vitamin D, 25-OH*** 59.7 ng/mL (30-80)
[2024-08-26 10:25] LABS: TSH 2.46 uIU/ml (0.47-4.68)
[2024-08-26 10:26] LABS: Testosterone, Total 23.2 ng/dl
[2024-08-26 10:28] LABS: Cortisol, Random 9.1 ug/dl
[2024-08-26 11:16] LABS: Erythrocyte Sed Rate 15 mm/hour (0-20)
[2024-08-28 23:44] LABS: Complement C3 131 mg/dl (88-165)
[2024-08-29] MEDS: NSS 1000 IV (08:56)
[2024-08-29 08:58] VITALS: BP 111/68
[2024-08-29 15:53] LABS: Insulin, Random 11 uIU/mL
[2024-08-29 20:55] LABS: DHEA Sulfate 110 ug/dL (61-337)
[2024-08-30 01:37] LABS: ds-DNA Ab, IgG Reflex To Titer 19 IU (0-24)
[2024-09-02] MEDS: NSS 1000 IV (09:01)
[2024-09-02 09:03] VITALS: BP 143/74
[2024-09-05] VITALS (8 sets, daily range): BP systolic 102–134; BP diastolic 56–67
[2024-09-05] MEDS: NSS 1000 IV (07:55)
[2024-09-05] MEDS: GAMMAGARD 300 IV (07:58)
[2024-09-09 08:27] VITALS: BP 120/81
[2024-09-09] MEDS: NSS 1000 IV (08:50)
[2024-09-09 10:00] VITALS: BP 117/66
[2024-09-12 08:45] VITALS: BP 120/68
[2024-09-12] MEDS: NSS 1000 IV (08:54)
== END 2024-09-12 15:45 | disposition home or self-care (01) ==
LOC: OID 08:21
PROVIDERS: ATTENDING PHYSICIAN Internal Medicine; OTHER PHYSICIAN Internal Medicine; OTHER PHYSICIAN Internal Medicine Endocrinology, Diabetes & Metabolism; OTHER PHYSICIAN Internal Medicine Rheumatology; PRIMARYCARE PHYSICIAN Family Medicine
DX: I49.8 Other specified cardiac arrhythmias (principal); R42 Dizziness and giddiness; E06.3 Autoimmune thyroiditis; E28.2 Polycystic ovarian syndrome; R55 Syncope and collapse; R00.0 Tachycardia, unspecified; G62.9 Polyneuropathy, unspecified
CPT/HCPCS: 36415; 80053; 80061; 82306; 82533; 82627; 83001; 83002; 83036; 83525; 84403; 84439; 84443; 85025; 85652; 86140; 86160; 86225; 96360; 96361; 96365; 96366; J1569

== ENCOUNTER 2024-10-07 08:20 | Outpatient (RCR) | payer BC, SELFPAY ==
[2024-09-16 08:29] VITALS: BP 109/70
[2024-09-16] MEDS: NSS 1000 IV (08:38)
[2024-09-23] MEDS: NSS 1000 IV (08:51)
[2024-09-23 08:54] VITALS: BP 113/78
[2024-09-30 08:30] VITALS: BP 118/65
[2024-09-30] MEDS: NSS 1000 IV (08:40)
[2024-10-04] VITALS (10 sets, daily range): BP systolic 88–109; BP diastolic 42–66
[2024-10-04] MEDS: GAMMAGARD 300 IV (08:08)
[2024-10-07 08:30] VITALS: BP 89/60
[2024-10-07] MEDS: NSS 1000 IV (08:33)
== END 2024-10-10 12:13 | disposition home or self-care (01) ==
LOC: OID 08:20
PROVIDERS: ATTENDING PHYSICIAN Internal Medicine; OTHER PHYSICIAN Internal Medicine; OTHER PHYSICIAN Internal Medicine Endocrinology, Diabetes & Metabolism; OTHER PHYSICIAN Internal Medicine Rheumatology; PRIMARYCARE PHYSICIAN Family Medicine
DX: I49.8 Other specified cardiac arrhythmias (principal); R42 Dizziness and giddiness; E06.3 Autoimmune thyroiditis; E28.2 Polycystic ovarian syndrome; R55 Syncope and collapse; R00.0 Tachycardia, unspecified; G62.9 Polyneuropathy, unspecified
CPT/HCPCS: 96360; 96365; 96366; J1569

== ENCOUNTER → 2024-11-08 09:00 | Outpatient (REF) | payer BC, SELFPAY | LOC: HWRAD 09:00 | PROVIDERS: ATTENDING PHYSICIAN Nurse Practitioner; FAMILY PHYSICIAN Family Medicine; REFERRING PHYSICIAN Internal Medicine Rheumatology | DX: N39.0 Urinary tract infection, site not specified (principal); N30.10 Interstitial cystitis (chronic) without hematuria | CPT/HCPCS: 76770; 76856 ==

== ENCOUNTER 2024-11-11 08:10 | Outpatient (RCR) | payer BC, SELFPAY ==
[2024-10-14 08:30] VITALS: BP 114/64
[2024-10-14] MEDS: NSS 1000 IV (08:37)
[2024-10-21] MEDS: NSS 1000 IV (08:38)
[2024-10-21 08:47] VITALS: BP 107/59
[2024-10-28 08:42] VITALS: BP 111/76
[2024-10-28] MEDS: NSS 1000 IV (08:42)
[2024-10-31 07:50] VITALS: BP 125/89
[2024-10-31] MEDS: NSS 1000 IV (08:05)
[2024-11-01] VITALS (8 sets, daily range): BP systolic 104–117; BP diastolic 60–90
[2024-11-01] MEDS: GAMMAGARD 300 IV (08:04)
[2024-11-01] MEDS: NSS 1000 IV (08:05)
[2024-11-04 08:55] VITALS: BP 119/73
[2024-11-04] MEDS: NSS 1000 IV (08:57)
[2024-11-11] MEDS: NSS 1000 IV (08:54)
[2024-11-11 08:57] VITALS: BP 111/77
== END 2024-11-11 15:34 | disposition home or self-care (01) ==
LOC: OID 08:10
PROVIDERS: ATTENDING PHYSICIAN Internal Medicine; OTHER PHYSICIAN Internal Medicine; OTHER PHYSICIAN Internal Medicine Endocrinology, Diabetes & Metabolism; OTHER PHYSICIAN Internal Medicine Rheumatology; PRIMARYCARE PHYSICIAN Family Medicine
DX: I49.8 Other specified cardiac arrhythmias (principal); R42 Dizziness and giddiness; E06.3 Autoimmune thyroiditis; E28.2 Polycystic ovarian syndrome; R55 Syncope and collapse; R00.0 Tachycardia, unspecified; G62.9 Polyneuropathy, unspecified
CPT/HCPCS: 96360; 96361; 96365; 96366; J1569

== ENCOUNTER 2024-12-09 08:16 | Outpatient (RCR) | payer BC, SELFPAY ==
[2024-11-14 08:54] VITALS: BP 109/68
[2024-11-14] MEDS: NSS 1000 IV (09:03)
[2024-11-18] MEDS: NSS 1000 IV (08:45)
[2024-11-18 09:01] VITALS: BP 111/45
[2024-11-25 10:00] VITALS: BP 107/59
[2024-11-25] MEDS: NSS 1000 IV (10:10)
[2024-11-29] VITALS (7 sets, daily range): BP systolic 109–123; BP diastolic 61–75
[2024-11-29] MEDS: NSS 1000 IV (08:00)
[2024-11-29] MEDS: GAMMAGARD 300 IV (08:06)
[2024-11-29 08:21] LABS: % Basophils 0.3 % (0-2); % Eosinophils 0.6 % (0-6); % Immature Granulocytes 0.2 % (0-0.5); % Lymphocytes 28.8 % (20.5-51.1); % Monocytes 7.8 % (1.7-9.3); % Neutrophils 62.3 % (42.2-75.2); Absolute Lymphocytes 1.8 10^3/uL (1.2-3.4); Absolute Monocytes 0.5 10^3/uL (0.1-0.6); Absolute Neutrophils 3.9 10^3/uL (1.4-6.5); Hematocrit 34.6 % (37.0-47.0); Mean Corp Hgb Conc. 34.7 g/dL (33.0-37.0); Mean Corpuscular Hgb 30.2 pg (27.0-31.0); Mean Corpuscular Volume 87.2 fL (81.0-99.0); Mean Platelet Volume 9.8 fL (7.4-10.4); Platelet Count 315 10^3/uL (130-400); Red Blood Cell Count 3.97 10^6/uL (4.20-5.40); Red Cell Dist. Width 11.9 % (11.5-14.5); White Blood Cell Count 6.3 10^3/uL (4.8-10.8)
[2024-11-29 08:57] LABS: ALT (SGPT) 20 U/L (0-35); AST (SGOT) 19 U/L (14-36); Alkaline Phosphatase 46 U/L (38-126); Blood Urea Nitrogen 11 mg/dl (7-17); Carbon Dioxide 23 mmol/L (22-30); Chloride 110 mmol/L (98-107); Glucose 90 mg/dl (70-99); Potassium 4.4 mmol/L (3.5-5.1); Sodium 139 mmol/L (135-145); Total Bilirubin 0.5 mg/dl (0.2-1.3); Total Protein 6.4 g/dl (6.3-8.2); eGFR > 60.00
[2024-12-05 08:45] VITALS: BP 107/72
[2024-12-05] MEDS: NSS 1000 IV (09:07)
[2024-12-09] MEDS: NSS 1000 IV (08:45)
[2024-12-09 08:47] VITALS: BP 120/61
== END 2024-12-12 08:44 | disposition home or self-care (01) ==
LOC: OID 08:16
PROVIDERS: ATTENDING PHYSICIAN Internal Medicine; OTHER PHYSICIAN Internal Medicine; OTHER PHYSICIAN Internal Medicine Endocrinology, Diabetes & Metabolism; OTHER PHYSICIAN Internal Medicine Rheumatology; PRIMARYCARE PHYSICIAN Family Medicine
DX: I49.8 Other specified cardiac arrhythmias (principal); R42 Dizziness and giddiness; E06.3 Autoimmune thyroiditis; E28.2 Polycystic ovarian syndrome; R55 Syncope and collapse; R00.0 Tachycardia, unspecified; G62.9 Polyneuropathy, unspecified
CPT/HCPCS: 80053; 85025; 96360; 96361; 96365; 96366; J1569

== ENCOUNTER 2024-12-19 00:44 | Emergency (ER) | payer BC, SELFPAY ==
[2024-12-19 00:47] VITALS: BP 113/86
[2024-12-19 01:52] VITALS: BP 113/102
[2024-12-19 02:00] VITALS: BP 115/71
[2024-12-19 02:06] LABS: Hematocrit 32.3 % (37.0-47.0); Hemoglobin 11.5 g/dL (12.0-16.0); Mean Corp Hgb Conc. 35.6 g/dL (33.0-37.0); Mean Corpuscular Volume 83.9 fL (81.0-99.0); Nucleated Red Blood Cells % 0 %; Platelet Count 291 10^3/uL (130-400); Red Cell Dist. Width 12.1 % (11.5-14.5)
[2024-12-19 02:12] LABS: Urine Character Clear (Clear)
[2024-12-19 02:28] LABS: ALT (SGPT) 14 U/L (0-35); AST (SGOT) 17 U/L (14-36); Albumin 3.9 g/dl (3.5-5.0); Alkaline Phosphatase 51 U/L (38-126); Blood Urea Nitrogen 11 mg/dl (7-17); Calcium 9.3 mg/dl (8.4-10.2); Carbon Dioxide 25 mmol/L (22-30); Chloride 109 mmol/L (98-107); Glucose 106 mg/dl (70-99); Lipase 124 U/L (23-300); Potassium 3.8 mmol/L (3.5-5.1); Sodium 139 mmol/L (135-145); Total Protein 6.5 g/dl (6.3-8.2); eGFR > 60.00
[2024-12-19 03:00] VITALS: BP 112/75
[2024-12-19] MEDS: TYLENOL 650 MG PO (03:27)
[2024-12-19 03:50] LABS: HCG, Serum Qualitative Screen Negative
[2024-12-19 04:00] VITALS: BP 110/72
--- NOTE | 2024-12-19 04:20 | ED.GENMED ---
History of Present Illness
General
Chief Complaint: Abdominal Pain
Source: patient
Time Seen by Provider: 12/19/24 02:35
Nursing documentation reviewed up to this point in time: agreed with
History of Present Illness
History of Present Illness:
Note:
CHIEF COMPLAINT(S)
Abdominal pain.
HISTORY OF PRESENT ILLNESS
The patient is a 34-year-old female presenting with sudden onset abdominal pain around 10 PM while trying to fall asleep. The pain has persisted for approximately two hours, intensifying in nature. She describes the pain as originating in the
abdomen, being tender to touch, and radiating towards the left lower quadrant. She is currently on the fourth day of her menstrual period, which she notes is typically light. The patient has a history of ovarian cysts and states that the pain feels
similar in nature, although it is located slightly higher than previous experiences. She recalls a urinary tract infection about a month and a half ago, which required two rounds of antibiotics and was followed by an episode of interstitial
cystitis. During that time, a pelvic ultrasound revealed a cyst of normal size. She also mentions an underlying diagnosis of polycystic ovary syndrome (PCOS) and Dvein-Danlos syndrome, with recent findings indicating a prolapse of the small bowel.
She reports no issues with constipation, having had two healthy bowel movements earlier today. The patient denies any possibility of . She took 600 mg of Ibuprofen at 11 PM. Due to concerns about low blood pressure, she uses Ketorolac
sparingly when receiving intravenous immune globulin (IVIG) for flare-ups.
CHRONIC MEDICAL CONDITIONS SIGNIFICANTLY AFFECTING CARE
The patient has a history of polycystic ovary syndrome (PCOS) and Devin-Danlos syndrome.
MEDICATIONS
600 mg of Ibuprofen taken at 11 PM.
REVIEW OF SYSTEMS
- Gastrointestinal: Abdominal pain, radiating and tender to touch, no constipation.
- Urogenital: Fourth day of menstrual period, light flow, no possibility of .
- Musculoskeletal: History of interstitial cystitis flare, presence of small bowel prolapse.
PROBLEM LIST
Acute:
- Abdominal pain with radiation.
Chronic:
- Polycystic ovary syndrome (PCOS).
- Devin-Danlos syndrome.
PLAN
- Begin with a pelvic ultrasound to investigate potential ovarian torsion.
- Consider a computed tomography (CT) scan if the ultrasound does not provide sufficient information.
- Administer Ketorolac for pain relief if required in a few hours.
DIFFERENTIAL DIAGNOSIS
The Differential Diagnosis includes, in no particular order and is not limited to:
1. Enteritis
2. Ovarian torsion,Ovarian cyst rupture ruled out with ultrasound
3. Endometriosis
4. Pelvic inflammatory disease
5. Appendicitis CT scan negative
6. Urinary tract infection urine negative
7. Ectopic patient not
8. Gastroenteritis
9. Nephrolithiasis ruled out with CT scan
10. Interstitial cystitis flare
CARE-UPDATE
12/19/24 - 04:22
The ultrasound of the pelvis and abdomen indicates a contracted but otherwise normal gallbladder, with no sludge or gallstones present and a negative [place] sign. There is no biliary ductal dilatation observed. The liver appears slightly
hypoechoic, suggesting fatty changes. The visualized pancreas, spleen, and kidneys appear without gross abnormalities. There is no free fluid detected. The uterus is normal in appearance, with an endometrial thickness measuring 5 cm. The ovaries are
not enlarged but display several follicles with normal vascular flow. Notably, there is a 1.4 cm follicle on the left ovary, and no free fluid presence is confirmed.
Disposition:
SUMMARY OF ENCOUNTER
A 34-year-old female presented to the emergency department with abdominal pain. The patient has an extensive medical history, including polycystic ovary syndrome (PCOS) and Devin-Danlos syndrome. After an unremarkable pelvic ultrasound, a CT scan
suggested gastroenteritis. The patient received one liter of intravenous fluids and reported feeling better following treatment.
DISPOSITION
Discharge in improved condition.
INDEPENDENT REVIEW OF LABS AND INTERPRETATION OF TESTS
- My independent interpretation of the pelvic ultrasound is unremarkable findings with normal ovaries and no free fluid.
- My independent interpretation of the CT scan suggests findings compatible with gastroenteritis.
PLAN
Discharge with instructions to follow up with primary care for ongoing management and monitoring of symptoms.
PATIENT EDUCATION AND COUNSELING
Educated the patient regarding gastroenteritis, emphasizing hydration and dietary modifications to manage symptoms. Reassured the patient of the benign nature of the findings on the declared tests.
FOLLOW-UP INSTRUCTIONS
Patient advised to contact her primary care provider to schedule a follow-up visit to reassess her condition and manage any underlying chronic conditions.
MEDICATION RECONCILIATION
- Patient reported having ondansetron (Zofran) at home and did not request a new prescription.
MEDICAL DECISION MAKING
- Number and Complexity of Problems Addressed: Chronic conditions affecting care include polycystic ovary syndrome (PCOS) and Devin-Danlos syndrome. Differential diagnoses considered were ovarian cyst rupture, ovarian torsion, endometriosis, pelvic
inflammatory disease, appendicitis, urinary tract infection, ectopic , gastroenteritis, nephrolithiasis, interstitial cystitis flare.
- Data:
Category 1: Independent review of the pelvic ultrasound and CT scan indicated gastroenteritis.
Category 2: None applicable in this instance.
Category 3: None applicable in this instance.
-Risk: Consideration of Admission/Observation: Escalation of care including admission/observation was considered given the complexity and risk of the patients presenting complaint, exam findings, and/or their underlying comorbidities. However,
ultimately, I feel the patient is safe for outpatient management with close follow-up. Reasoning: Work-up reassuring, does not reveal any acute life/organ threatening processes, patients symptoms well controlled upon reevaluation, reexamination is
reassuring, vitals are stable, patient agreeable with discharge, reliable for follow-up.
DIAGNOSIS
- Gastroenteritis (K52.9)
Past History
Past History
ED Past Medical History: Hyperthyroidism, Psychiatric (Depression), Other (Anemia, being worked up for autoimmune disease, POTS) and Other (Devin-Danlos)
ED Past Surgical History: None
Social History
Tobacco: Non-smoker
Alcohol: None
Drug: None
Personal:
Living: with family
Employment: Employed
Family History
Family History: Other
Phy Exam
General Physical Exam
General Presentation: mild distress
General age: appears stated age
General Skin: warm and dry
General Habitus: normal
General Mental: alert
General Hydration: appears well hydrated
ENT Exam
ENT Exam: EOMI, pharynx normal, neck supple and normocephalic
Eye Exam
Eye Exam: PERRL, cornea clear and conjunctiva normal
Cardiovascular Exam
Cardiovascular Exam: regular rate/rhythm, no edema, no murmur and normal peripheral pulses
Pulmonary Exam
Pulmonary Exam: lungs clear, no respiratory distress, no rales, no crackles, no rhonchi, no stridor, no wheezing and no cough
Gastrointestinal Exam
Gastrointestinal Exam: normal bowel sounds, non tender, soft, no organomegaly, no pulsatile mass and non distended
Palpation: generalized: Mild tenderness
Auscultation of Abdomen: high pitched tinkling
Neurological Exam
Neurological Exam: alert, oriented x3, no motor deficits and speech normal
Musculoskeletal Exam
Musculoskeletal Exam: full ROM and no edema
Skin Exam
Skin Exam: normal color, warm/dry, no rash and no petechia
Psychiatric Exam
Psychiatric Exam: normal mood/affect
Course
Orders/Labs/Results
Orders:
Orders
12/19/24 01:28
IV Insert/Care/Rem.- Treatment PRN
Straight cath- Treatment ONCE
12/19/24 01:54
Complete Blood Count/With Diff Urgent
Comprehensive Metabolic Panel Urgent
HCG, Serum Qualitative Screen Urgent
Comment: ADD ON
Lipase Urgent
Urinalysis Reflex To Culture Urgent
Date Specimen was Collected: 12/19/24
Time Specimen was Collected: 01:28
12/19/24 03:06
US Pelvis Only (non-obstetric) Urgent
Comment:
Reason For Exam: left pelvic pain
12/19/24 03:08
Test Result ONCE
12/19/24 03:13
Add On- LAB Urgent
Tests Added?: hcg serum qualitative
12/19/24 03:22
Acetaminophen [Tylenol] 650 mg PO NOW STA
12/19/24 03:30
US Abdomen Complete/Upper Urgent
Comment:
Reason For Exam: flank pain
12/19/24 04:28
CT Abd/pelvis W Iv Cont Urgent
Comment:
Reason For Exam: left sided abdominal pain
12/19/24 06:03
Ketorolac [Toradol] 15 mg .ROUTE .STK-MED ONE
Ketorolac [Toradol] 15 mg IV NOW STA
Abnormal Lab Results
12/19/24
01:54
RBC 3.85 L 10^6/uL
(4.20-5.40)
Hgb 11.5 L g/dL
(12.0-16.0)
Hct 32.3 L %
(37.0-47.0)
Chloride 109 H mmol/L
(98-107)
Glucose 106 H mg/dl
(70-99)
12/19/24 01:54
12/19/24 01:54
Vital Signs
Initial and Last Documented VS:
Initial Vital Signs
Temp Pulse Resp BP Pulse Ox
98 F 90 20 113/86 99
12/19/24 00:47 12/19/24 00:47 12/19/24 00:47 12/19/24 00:47 12/19/24 00:47
Last Documented Vital Signs
Temp Pulse Resp BP Pulse Ox
98 F 75 21 108/73 97
12/19/24 00:47 12/19/24 04:00 12/19/24 03:30 12/19/24 05:00 12/19/24 05:00
*Pulse Oximetry
SaO2: 97
Oxygen Mode of Delivery: Room air
Patient hypoxic: no
*Critical Care Note
Total Time (30-74mins, 75-104mins- exclusive of procedures): Not Applicable
Update Note
Update Note:
NAME: CHAVO MCLEAN
DATE OF EXAM: 12/19/2024
Patient No: [id number]
Physician: EVELIN^Christo.
Date of : 1990
Past Medical History (entered by Technologist):
Reason For Exam (entered by Technologist):
Other Notes (entered by Technologist):
Additional Information (per [facility] Radiologist):
Ultrasound abdomen
Ultrasound pelvis
IMPRESSION:
Abdomen:
Contracted otherwise normal gallbladder. No sludge or gallstones. Negative Rosen sign.
No biliary ductal dilatation.
Slightly hyperechoic fatty liver.
Visualized pancreas, spleen and bilateral kidneys without gross abnormality.
No free fluid.
Pelvis:
Normal uterus. Endometrium measures 0.5 cm.
Nonenlarged ovaries with several follicles and normal vascular flow. Exophytic 1.4 cm follicle from the left ovary.
No free fluid.
The results were faxed/finalized only at 4:11 AM ET. If you would like to discuss this case directly, please call [phone] (extension [phone]). If you can't reach me at this number, do not leave a voicemail. Please call [phone] ext [phone] and ask
for the next available Radiologist.
Erik Altman MD
This report has been electronically signed and verified by the Radiologist whose name is printed above.
NAME: CHAVO MCLEAN
DATE OF EXAM: 12/19/2024
Patient No: [id number]
Physician: EVELIN^Christo.
Date of : 1990
Past Medical History (entered by Technologist):
Reason For Exam (entered by Technologist):
Other Notes (entered by Technologist): Patient woke up tonight with Left abdominal pain
No prior
Additional Information (per [facility] Radiologist):
CT ABDOMEN/PELVIS WITH CONTRAST
IMPRESSION:
1. Wall thickening of loops of small bowel within the central abdomen likely represents underlying enteritis, with scattered air-fluid levels.
2. No bowel obstruction. Normal gallbladder and appendix
Incidentals:
- No obstructive uropathy.
- No hepatic or pancreatic mass.
- No abdominal aortic aneurysm.
- No acute osseous abnormality.
- No acute abnormality within the visualized lungs. Small hiatal hernia
- No acute abnormality within the visualized soft tissues.
Case finalized on Dec 19 2024 6:20AM ET
ED Attending Note
-
Portions of this chart may have been created with voice recognition software.� Occasional wrong word or��sound alike� substitutions may have occurred due to the inherent limitations of voice recognition software.
Discharge Plan
Departure
Patient Disposition: Home (Routine Discharge)
Date of Disposition: 12/19/24
Time of Disposition: 06:36
Patient with high blood pressure during this ER visit?: Yes
Condition: Good
Discharge Problem:
Enteritis
Instructions: Clear Liquid Diet, Abdominal Pain, BLOOD PRESSURE
Prescriptions:
No Action
clonazepam 0.5 MG tablet
0.5 mg PO HS
Patient Comments:
x 2 as needed
ondansetron HCl 4 MG tablet
8 mg PO Q8HPRN PRN (Reason: nausea)
bisacodyl 5 MG tablet,delayed release (DR/EC)
10 mg PO QPM PRN (Reason: constipation)
docosahexaenoic acid-epa 1 CAP capsule
1 cap PO DAILY
magnesium citrate 125 MG capsule
250 mg PO QPM PRN (Reason: constipation/nerve pain)
Vitamin D3 With K
1 tab PO DAILY
Patient Comments:
vit D3 5000 units and K 20meq
ascorbic acid (vitamin C) [Vitamin C] 1,000 MG tablet
2,000 mg PO DAILY
midodrine 5 MG tablet
10 mg PO TID
zinc gluconate 30 MG tablet
30 mg PO DAILY
coenzyme Q10 [Co Q-10] 200 MG capsule
200 mg PO DAILY
sodium chloride 1,000 MG tablet,soluble
4,000 mg MC DAILY
levomefolate calcium [L-Methylfolate] 7.5 MG tablet
7.5 mg PO DAILY
levocarnitine tartrate 500 MG capsule
1,000 mg PO DAILY
Stress B-Complex 1 EACH tablet
1 ea PO DAILY
alpha lipoic acid 600 MG tablet
600 mg PO DAILY
fluticasone propionate [Flonase] 50 mcg/actuation [place],Suspension
2 spray INTRANASAL DAILY PRN (Reason: allergies)
guaifenesin [Mucinex] 600 mg Tablet Extended Release 12hr
600 mg PO BID PRN (Reason: congestion)
diphenhydramine-acetaminophen [Tylenol PM Extra Strength] 25-500 mg Tablet
2 tab PO HS PRN (Reason: sleep/pain)
cetirizine [Zyrtec] 10 mg Tablet
10 mg PO DAILY
famotidine [Pepcid] 20 mg Tablet
20 mg PO DAILY
ibuprofen 800 mg Tablet
600 mg PO Q6H PRN (Reason: pain)
acetaminophen [Tylenol Ex Str Rapid Release] 500 mg Tablet
500 mg PO Q6H MDD 3000mg PRN (Reason: pain)
naltrexone 1.5 mg Capsule
1.75 mg PO HS
quercetin 500 mg Capsule
250 mg PO DAILY
Referrals:
Hailee Mishra MD [Family Provider, Family Practice]
Interventions
Interventions:
*Risk Screen - Suicide Last Done: 12/19/24 00:47
*General Assessment Last Done: 12/19/24 00:47
*Neglect/Abuse Screening Last Done: 12/19/24 04:00
*ED- Fall Risk Assessment Last Done: 12/19/24 00:47
*ED COVID-19 Vaccine History Last Done: 12/19/24 00:47
KJ-[id number]-[id number] Assessment Last Done: 12/19/24 03:35
Discharge Date and Time
Print Language: PASHTO
[2024-12-19 05:00] VITALS: BP 108/73
[2024-12-19] MEDS: TORADOL 15 MG IV (06:06)
== END 2024-12-19 07:00 | disposition home or self-care (01) ==
LOC: EMR 00:44
PROVIDERS: EMERGENCY PHYSICIAN Student in an Organized Health Care Education/Training Program; FAMILY PHYSICIAN Family Medicine
DX: R10.2 Pelvic and perineal pain (principal); K52.9 Noninfective gastroenteritis and colitis, unspecified; R03.0 Elevated blood-pressure reading, without diagnosis of hypertension; K76.0 Fatty (change of) liver, not elsewhere classified; N83.209 Unspecified ovarian cyst, unspecified side; E28.2 Polycystic ovarian syndrome; Q79.60 Ehlers-Danlos syndrome, unspecified; N30.10 Interstitial cystitis (chronic) without hematuria; E05.90 Thyrotoxicosis, unspecified without thyrotoxic crisis or storm; D64.9 Anemia, unspecified; F32.A Depression, unspecified; G62.9 Polyneuropathy, unspecified; G90.A Postural orthostatic tachycardia syndrome [POTS]; Z87.440 Personal history of urinary (tract) infections; Z88.8 Allergy status to other drugs, medicaments and biological substances
CPT/HCPCS: 99285; 96374; 74177; 76700; 76856; 80053; 81003; 83690; 84703; 85025; Q9967

== ENCOUNTER 2025-01-09 08:08 | Outpatient (RCR) | payer BC, SELFPAY ==
[2024-12-14 08:33] VITALS: BP 109/78
[2024-12-14] MEDS: NSS 1000 IV (08:47)
[2024-12-21 13:00] VITALS: BP 112/64
[2024-12-21] MEDS: NSS 1000 IV (13:17)
[2024-12-26 08:45] VITALS: BP 113/69
[2024-12-26] MEDS: NSS 1000 IV (08:56)
[2025-01-02] MEDS: NSS 1000 IV (08:56)
[2025-01-02 09:00] VITALS: BP 102/66
[2025-01-06 08:45] VITALS: BP 109/71
[2025-01-06] MEDS: NSS 1000 IV (08:50)
[2025-01-09] VITALS (7 sets, daily range): BP systolic 96–118; BP diastolic 53–67
[2025-01-09] MEDS: NSS 1000 IV (08:46)
[2025-01-09] MEDS: GAMMAGARD 300 IV (08:46)
== END 2025-01-10 11:17 | disposition home or self-care (01) ==
LOC: OID 08:08
PROVIDERS: ATTENDING PHYSICIAN Internal Medicine; OTHER PHYSICIAN Internal Medicine; OTHER PHYSICIAN Internal Medicine Endocrinology, Diabetes & Metabolism; PRIMARYCARE PHYSICIAN Family Medicine; REFERRING PHYSICIAN Internal Medicine Rheumatology
DX: I49.8 Other specified cardiac arrhythmias (principal); R42 Dizziness and giddiness; E06.3 Autoimmune thyroiditis; E28.2 Polycystic ovarian syndrome; R55 Syncope and collapse; G90.9 Disorder of the autonomic nervous system, unspecified; R00.0 Tachycardia, unspecified; G61.81 Chronic inflammatory demyelinating polyneuritis; M79.18 Myalgia, other site; G62.9 Polyneuropathy, unspecified
CPT/HCPCS: 96360; 96361; 96365; 96366; J1569

== ENCOUNTER 2025-02-06 07:30 | Outpatient (RCR) | payer BC, SELFPAY ==
[2025-01-13] MEDS: NSS 1000 IV (08:53)
[2025-01-13 08:56] VITALS: BP 118/72
[2025-01-23 08:39] VITALS: BP 104/66
[2025-01-23] MEDS: NSS 1000 IV (08:46)
[2025-01-27 08:54] VITALS: BP 119/70
[2025-01-27] MEDS: NSS 1000 IV (09:11)
[2025-01-30 08:50] VITALS: BP 108/64
[2025-01-30] MEDS: NSS 1000 IV (09:06)
[2025-02-03] MEDS: NSS 1000 IV (08:57)
[2025-02-03 09:04] VITALS: BP 115/81
[2025-02-03 09:33] LABS: ALT (SGPT) 18 U/L (0-35); AST (SGOT) 16 U/L (14-36); Albumin 4.4 g/dl (3.5-5.0); Alkaline Phosphatase 53 U/L (38-126); HDL Cholesterol 52 mg/dl; LDL Cholesterol, Calculated 82 mg/dl; Total Protein 7.1 g/dl (6.3-8.2); Very Low Density Lipoprotein 23 mg/dl (0-30)
[2025-02-03 10:18] LABS: Glycohemoglobin (HgbA1c) 4.6 % (4.0-5.6)
[2025-02-06] VITALS (10 sets, daily range): BP systolic 103–117; BP diastolic 65–75
[2025-02-06] MEDS: GAMMAGARD 300 IV (08:18)
[2025-02-06] MEDS: NSS 1000 IV (08:18)
== END 2025-02-09 14:09 | disposition home or self-care (01) ==
LOC: OID 07:30
PROVIDERS: ATTENDING PHYSICIAN Internal Medicine; OTHER PHYSICIAN Internal Medicine; OTHER PHYSICIAN Internal Medicine Endocrinology, Diabetes & Metabolism; PRIMARYCARE PHYSICIAN Family Medicine; REFERRING PHYSICIAN Internal Medicine Rheumatology
DX: I49.8 Other specified cardiac arrhythmias (principal); R42 Dizziness and giddiness; E06.3 Autoimmune thyroiditis; E28.2 Polycystic ovarian syndrome; G90.9 Disorder of the autonomic nervous system, unspecified; G61.81 Chronic inflammatory demyelinating polyneuritis; M79.18 Myalgia, other site; R55 Syncope and collapse; R00.0 Tachycardia, unspecified; G62.9 Polyneuropathy, unspecified
CPT/HCPCS: 36415; 80061; 80076; 83036; 96360; 96361; 96365; 96366; J1569

== ENCOUNTER 2025-03-10 09:22 | Outpatient (RCR) | payer BC, SELFPAY ==
[2025-02-17 09:35] VITALS: BP 120/68
[2025-02-17] MEDS: NSS 1000 IV (09:37)
[2025-02-20 09:39] VITALS: BP 121/61
[2025-02-20] MEDS: NSS 1000 IV (09:53)
[2025-02-27] MEDS: NSS 1000 IV (09:52)
[2025-02-27 10:00] VITALS: BP 101/74
[2025-02-27 10:53] LABS: ALT (SGPT) 25 U/L (0-35); AST (SGOT) 22 U/L (14-36); Albumin 4.5 g/dl (3.5-5.0); Alkaline Phosphatase 49 U/L (38-126); Blood Urea Nitrogen 14 mg/dl (7-17); Calcium 9.5 mg/dl (8.4-10.2); Carbon Dioxide 25 mmol/L (22-30); Chloride 105 mmol/L (98-107); Glucose 85 mg/dl (70-99); Potassium 4.5 mmol/L (3.5-5.1); Sodium 137 mmol/L (135-145); Total Protein 7.4 g/dl (6.3-8.2); eGFR > 60.00
[2025-03-03 09:20] VITALS: BP 115/71
[2025-03-03] MEDS: NSS 1000 IV (09:34)
[2025-03-10] MEDS: NSS 1000 IV (09:45)
[2025-03-10 09:48] VITALS: BP 106/69
== END 2025-03-13 10:15 | disposition home or self-care (01) ==
LOC: OID 09:22
PROVIDERS: Nurse Practitioner Family; ATTENDING PHYSICIAN Internal Medicine; OTHER PHYSICIAN Internal Medicine; OTHER PHYSICIAN Internal Medicine Endocrinology, Diabetes & Metabolism; PRIMARYCARE PHYSICIAN Family Medicine; REFERRING PHYSICIAN Internal Medicine Rheumatology
DX: Q79.60 Ehlers-Danlos syndrome, unspecified (principal); I49.8 Other specified cardiac arrhythmias; E06.3 Autoimmune thyroiditis; R42 Dizziness and giddiness; E28.2 Polycystic ovarian syndrome; G90.9 Disorder of the autonomic nervous system, unspecified; M79.18 Myalgia, other site; G61.81 Chronic inflammatory demyelinating polyneuritis; R55 Syncope and collapse; R00.0 Tachycardia, unspecified; G62.9 Polyneuropathy, unspecified
CPT/HCPCS: 36415; 80053; 83525; 84443; 84681; 96360; 96365

== ENCOUNTER 2025-04-10 09:32 | Outpatient (RCR) | payer BC, SELFPAY ==
[2025-03-17] MEDS: GAMMAGARD 300 IV (08:14)
[2025-03-17] MEDS: NSS 1000 IV (08:22)
[2025-03-17 08:37] VITALS: BP 102/58; BP 117/88
[2025-03-17 09:07] VITALS: BP 110/53
[2025-03-17 09:37] VITALS: BP 105/54
[2025-03-17 10:07] VITALS: BP 97/54
[2025-03-17 10:37] VITALS: BP 101/57
[2025-03-17 11:07] VITALS: BP 113/70
[2025-03-20] MEDS: NSS 1000 IV (10:15)
[2025-03-20 10:22] VITALS: BP 89/56
[2025-03-20 11:20] VITALS: BP 93/70
[2025-03-24 09:44] VITALS: BP 94/53
[2025-03-31 09:30] VITALS: BP 111/69
[2025-03-31] MEDS: NSS 1000 IV (09:42)
[2025-04-03 10:00] VITALS: BP 108/62
[2025-04-07 09:48] VITALS: BP 123/66
[2025-04-07] MEDS: NSS 1000 IV (09:57)
[2025-04-10] MEDS: NSS 1000 IV (10:00)
[2025-04-10 10:10] VITALS: BP 124/73
== END 2025-04-12 14:41 | disposition home or self-care (01) ==
LOC: OID 09:32
PROVIDERS: ATTENDING PHYSICIAN Internal Medicine; OTHER PHYSICIAN Internal Medicine; OTHER PHYSICIAN Internal Medicine Endocrinology, Diabetes & Metabolism; PRIMARYCARE PHYSICIAN Family Medicine; REFERRING PHYSICIAN Internal Medicine Rheumatology
DX: Q79.60 Ehlers-Danlos syndrome, unspecified (principal); I49.8 Other specified cardiac arrhythmias; R42 Dizziness and giddiness; E06.3 Autoimmune thyroiditis; E28.2 Polycystic ovarian syndrome; G90.9 Disorder of the autonomic nervous system, unspecified; G61.81 Chronic inflammatory demyelinating polyneuritis; M79.18 Myalgia, other site; R55 Syncope and collapse; R00.0 Tachycardia, unspecified; G62.9 Polyneuropathy, unspecified
CPT/HCPCS: 36415 ×2; 96360; 96361; 96365; 96366; J1569

== ENCOUNTER → 2025-05-03 07:46 | Outpatient (REF) | payer BC, SELFPAY | LOC: MRI 3T 07:46 | PROVIDERS: ATTENDING PHYSICIAN Internal Medicine; FAMILY PHYSICIAN Family Medicine | DX: K52.9 Noninfective gastroenteritis and colitis, unspecified (principal) | CPT/HCPCS: 72197; 74183; A9585 ==

== ENCOUNTER 2025-05-08 09:04 | Outpatient (RCR) | payer BC, SELFPAY ==
[2025-04-17] VITALS (8 sets, daily range): BP systolic 95–110; BP diastolic 46–81
[2025-04-17 08:10] LABS: Hematocrit 32.7 % (37.0-47.0); Hemoglobin 11.3 g/dL (12.0-16.0); Mean Corp Hgb Conc. 34.6 g/dL (33.0-37.0); Mean Corpuscular Volume 87.9 fL (81.0-99.0); Platelet Count 308 10^3/uL (130-400); Red Cell Dist. Width 11.9 % (11.5-14.5)
[2025-04-17] MEDS: NSS 1000 IV (08:25)
[2025-04-17] MEDS: GAMMAGARD 300 IV (08:25)
[2025-04-17 09:30] LABS: ALT (SGPT) 14 U/L (0-35); AST (SGOT) 19 U/L (14-36); Albumin 3.9 g/dl (3.5-5.0); Alkaline Phosphatase 44 U/L (38-126); Blood Urea Nitrogen 14 mg/dl (7-17); Calcium 8.5 mg/dl (8.4-10.2); Carbon Dioxide 26 mmol/L (22-30); Chloride 103 mmol/L (98-107); Glucose 88 mg/dl (70-99); Potassium 4.5 mmol/L (3.5-5.1); Sodium 132 mmol/L (135-145); Total Protein 6.5 g/dl (6.3-8.2); eGFR > 60.00
[2025-04-21] MEDS: NSS 1000 IV (09:50)
[2025-04-21 10:02] VITALS: BP 107/61
[2025-05-01] MEDS: NSS 1000 IV (10:25)
[2025-05-01 10:35] VITALS: BP 118/78; BMI 27.8
[2025-05-08 09:15] VITALS: BP 113/63
[2025-05-08] MEDS: NSS 1000 IV (09:23)
== END 2025-05-09 12:12 | disposition home or self-care (01) ==
LOC: OID 09:04
PROVIDERS: ATTENDING PHYSICIAN Internal Medicine; OTHER PHYSICIAN Internal Medicine; OTHER PHYSICIAN Internal Medicine Endocrinology, Diabetes & Metabolism; PRIMARYCARE PHYSICIAN Family Medicine; REFERRING PHYSICIAN Internal Medicine Rheumatology
DX: Q79.60 Ehlers-Danlos syndrome, unspecified (principal); I49.8 Other specified cardiac arrhythmias; R42 Dizziness and giddiness; E06.3 Autoimmune thyroiditis; E28.2 Polycystic ovarian syndrome; G90.9 Disorder of the autonomic nervous system, unspecified; G61.81 Chronic inflammatory demyelinating polyneuritis; M79.18 Myalgia, other site; R55 Syncope and collapse; R00.0 Tachycardia, unspecified; G62.9 Polyneuropathy, unspecified
CPT/HCPCS: 36415; 80053; 85025; 96360; 96361; 96365; 96366; J1569

== ENCOUNTER 2025-06-12 08:22 | Outpatient (RCR) | payer BC, SELFPAY ==
[2025-05-19] VITALS (8 sets, daily range): BP systolic 97–115; BP diastolic 62–74
[2025-05-19 08:51] LABS: Hematocrit 34.2 % (37.0-47.0); Hemoglobin 11.4 g/dL (12.0-16.0); Mean Corp Hgb Conc. 33.3 g/dL (33.0-37.0); Mean Corpuscular Volume 87.0 fL (81.0-99.0); Nucleated Red Blood Cells % 0 %; Platelet Count 316 10^3/uL (130-400); Red Cell Dist. Width 12.1 % (11.5-14.5)
[2025-05-19] MEDS: GAMMAGARD 300 IV (08:54)
[2025-05-19] MEDS: NSS 1000 IV (08:55)
[2025-05-19 09:18] LABS: ALT (SGPT) 17 U/L (0-35); AST (SGOT) 21 U/L (14-36); Albumin 3.9 g/dl (3.5-5.0); Alkaline Phosphatase 52 U/L (38-126); Blood Urea Nitrogen 10 mg/dl (7-17); Calcium 8.7 mg/dl (8.4-10.2); Carbon Dioxide 26 mmol/L (22-30); Chloride 105 mmol/L (98-107); Glucose 86 mg/dl (70-99); Potassium 4.0 mmol/L (3.5-5.1); Sodium 135 mmol/L (135-145); Total Protein 6.6 g/dl (6.3-8.2); eGFR > 60.00
[2025-05-19 09:23] LABS: C-Reactive Protein 7.00 mg/L (0.0-10.00)
[2025-05-19 10:43] LABS: Glycohemoglobin (HgbA1c) 4.8 % (4.0-5.9)
[2025-05-24 01:24] LABS: Albumin 3.82 g/dL (3.75-5.01); Free Kappa Light Chains,Quant 18.01 mg/L (3.30-19.40); Free Lambda Light Chains,Quant 12.22 mg/L (5.71-26.30); Immunofixation Electrophoresis IFE Done; Kappa/Lambda Fr Light Ratio 1.47 (0.26-1.65); Total Protein-Electrophoresis 6.3 g/dL (6.3-8.2)
[2025-05-24 09:47] LABS: ANA, IgG Reflex to HEp-2 None Detected (None Detected)
[2025-05-24] MEDS: NSS 1000 IV (10:14)
[2025-05-24 10:17] VITALS: BP 118/65
[2025-06-02] MEDS: NSS 1000 IV (09:53)
[2025-06-02 09:55] VITALS: BP 122/78
[2025-06-02 12:45] LABS: Iron 136 ug/dl (37-170)
[2025-06-02 12:55] LABS: Total Iron Binding Capacity 315 ug/dl (265-497)
[2025-06-02 15:48] LABS: Ferritin 18.7 ng/ml (6.24-137)
[2025-06-02 16:19] LABS: Folate > 20.0 ng/ml (2.76-20); Vitamin B12 855 pg/ml (239-931)
[2025-06-05 10:20] VITALS: BP 110/71
[2025-06-05] MEDS: NSS 1000 IV (10:25)
[2025-06-12 08:38] VITALS: BP 122/77
[2025-06-12] MEDS: NSS 1000 IV (08:48)
== END 2025-06-13 10:11 | disposition home or self-care (01) ==
LOC: OID 08:22
PROVIDERS: ATTENDING PHYSICIAN Internal Medicine; OTHER PHYSICIAN Internal Medicine; OTHER PHYSICIAN Internal Medicine Endocrinology, Diabetes & Metabolism; PRIMARYCARE PHYSICIAN Family Medicine; REFERRING PHYSICIAN Internal Medicine Rheumatology
DX: Q79.60 Ehlers-Danlos syndrome, unspecified (principal); R42 Dizziness and giddiness; E06.3 Autoimmune thyroiditis; I49.8 Other specified cardiac arrhythmias; G61.81 Chronic inflammatory demyelinating polyneuritis; G90.9 Disorder of the autonomic nervous system, unspecified; E28.2 Polycystic ovarian syndrome; M79.18 Myalgia, other site; G90.A Postural orthostatic tachycardia syndrome [POTS]; E88.810 Metabolic syndrome; R55 Syncope and collapse; R00.0 Tachycardia, unspecified; G62.9 Polyneuropathy, unspecified
CPT/HCPCS: 80053; 82607; 82728; 82746; 82784; 83036; 83521; 83540; 83550; 84155; 84165; 85025; 85652; 86038; 86140; 86334; 96360; 96361; 96365; 96366; J1569